=== PATIENT | female | born 1950 | race Caucasian/White ===

== ENCOUNTER 2017-12-20 08:56 | Day surgery (SDC) | payer BC ==
[2017-12-20] VITALS (9 sets, daily range): BP systolic 131–143; BP diastolic 58–79
[~2017-12-20] VITALS: Ht 165.1 cm; Wt 84.5 kg
[2017-12-20] MEDS ORDERED: sod bicarbonate 150mEq in D5W 1,150 ML IV ONE (09:20)
[2017-12-20] MEDS ORDERED: diphenhydrAMINE 25mg capsule PO PRN (09:20)
[2017-12-20 09:55] LABS: BASOPHILS # (AUTO) 0.1 X10'3 (0-0.2); BASOPHILS % (AUTO) 0.8 % (0-1); EOSINOPHILS # (AUTO) 0.2 X10'3 (0-0.9); EOSINOPHILS % (AUTO) 2.3 % (0-6); HEMATOCRIT 44.5 % (35.0-45.0); LYMPHOCYTES # (AUTO) 1.6 X10'3 (1.1-4.8); LYMPHOCYTES % (AUTO) 23.6 % (21-51); MEAN CORPUSCULAR HEMOGLOBIN 31.6 PG (27.0-31.0); MEAN CORPUSCULAR HGB CONC 33.6 % (33.0-36.5); MEAN CORPUSCULAR VOLUME 93.9 FL (78-98); MEAN PLATELET VOLUME 8.1 FL (7.4-10.4); MONOCYTES # (AUTO) 0.7 X10'3 (0-0.9); NEUTROPHILS # (AUTO) 4.3 X10'3 (1.8-7.7); NEUTROPHILS % (AUTO) 63.3 % (42-75); PLATELET COUNT 270 X10'3 (140-440); RED BLOOD COUNT 4.74 X10'6 (4.20-5.60); RED CELL DISTRIBUTION WIDTH 14.3 % (11.5-14.5); WHITE BLOOD COUNT 6.8 X10'3 (4.5-11.0)
[2017-12-20 10:08] LABS: ALBUMIN 3.7 G/DL (3.4-5.0); ANION GAP 8 (8-16); BLOOD UREA NITROGEN 18 MG/DL (7-18); BUN/CREATININE RATIO 19.1 (6.6-38.0); CALCIUM 8.1 MG/DL (8.5-10.1); CHLORIDE 105 MMOL/L (99-107); CREATININE 0.94 MG/DL (0.40-0.90); GLUCOSE 95 MG/DL (70-104); MAGNESIUM 2.2 MG/DL (1.5-2.4); POTASSIUM 4.2 MMOL/L (3.5-5.1); SODIUM 141 MMOL/L (135-145); TOTAL CARBON DIOXIDE 27.9 MMOL/L (24-32); eGFR 60 ML/MIN
[2017-12-20 10:10] LABS: PROTHROMBIN TIME 9.9 SECONDS (9.0-12.0)
[2017-12-20] MEDS ORDERED: HYDR-4353 PO (10:15)
[2017-12-20] MEDS ORDERED: RIVA20TA PO (10:15)
[2017-12-20] MEDS ORDERED: LOSA100T3 PO (10:15)
[2017-12-20] MEDS ORDERED: LIDOcaine 1% (10mg/ml)w/preservative injection 20ml MDV ONE (10:30)
[2017-12-20] MEDS ORDERED: midazolam 2 mg/2 ml injection ONE ×2 (10:30→11:05)
[2017-12-20] MEDS ORDERED: fentaNYL/PF 50MCG/1 ML 2ML syringe ONE (10:30)
[2017-12-20] MEDS ORDERED: iohexol 350MG/ML 100ml bottle IV ONE (10:30)
[2017-12-20] MEDS ORDERED: iohexol 350 MG/ML 50ML vial IV ONE (10:30)
== END 2017-12-20 15:00 | disposition home or self-care (01) ==
LOC: SSTAY O 08:56
PROVIDERS: ATTEND Internal Medicine Cardiovascular Disease
DX: I25.10 Atherosclerotic heart disease of native coronary artery without angina pectoris (principal); I47.2 Ventricular tachycardia; I49.8 Other specified cardiac arrhythmias; I10 Essential (primary) hypertension; G89.29 Other chronic pain; Z87.891 Personal history of nicotine dependence; Z90.89 Acquired absence of other organs; Z72.89 Other problems related to lifestyle; Z90.49 Acquired absence of other specified parts of digestive tract; Z79.891 Long term (current) use of opiate analgesic; Z79.899 Other long term (current) drug therapy; Z98.890 Other specified postprocedural states; Z82.49 Family history of ischemic heart disease and other diseases of the circulatory system; Z80.1 Family history of malignant neoplasm of trachea, bronchus and lung
CPT/HCPCS: 36415; 80048; 83735; 85025; 85610; 93458; 99152; 99153; A6257; C1760; J1644; J2001; J2250; J3010; Q0163; Q9967; A4620; C1769; C1894